=== PATIENT | female | born 1935 | race Caucasian/White ===

== ENCOUNTER 2019-10-02 15:25 | Outpatient (CLI) | payer MEDICARE, SELFPAY ==
--- NOTE | 2019-10-02 15:52 | XRR_ITS ---
PROCEDURE INFORMATION: Exam: XR Pelvis Exam date and time: 10/02/2019 4:09 PM Age: 84 years old Clinical indication: Pain; Other: Back; Additional info: Chronic back pain TECHNIQUE: Imaging protocol: XR pelvis. Views: 1 or 2 view. COMPARISON: CT Abdomen/Pelvis Renal [id number] 01/13/2014 4:45 PM FINDINGS: Bones/joints: Unremarkable. No acute fracture. Soft tissues: There is metallic surgical clips in the lower central pelvis. The soft tissues are otherwise Unremarkable. XR/XR pelvis 1-2V* [id number] IMPRESSION: No acute findings.
--- NOTE | 2019-10-02 15:52 | XRR_ITS ---
PROCEDURE INFORMATION: Exam: XR Lumbosacral Spine, 2 or 3 Views Exam date and time: 10/02/2019 4:09 PM Age: 84 years old Clinical indication: Low back pain; Additional info: Chronic back pain TECHNIQUE: Imaging protocol: XR of the lumbosacral spine, 2 or 3 views. COMPARISON: CR Lumbar Spine 2-3 views* [id number] 12/12/2014 12:04 PM FINDINGS: Vertebrae: There is a narrowing of the intervertebral disc spaces several levels consistent with mild osteoarthritis. No acute fracture. Normal alignment. Soft tissues: The aorta is calcified without aneurysm. there is evidence of metallic surgical clips right upper quadrant consistent with cholecystectomy. XR/XR lumbar spine 2-3V* [id number] IMPRESSION: Osteoarthritis Status post cholecystectomy Otherwise Unremarkable radiograph.
== END 2019-10-02 15:26 | disposition home or self-care (01) ==
LOC: RAD 15:31
PROVIDERS: Family Provider Family Medicine; PCP Family Medicine; Visit Provider Family Medicine
DX: M54.5 Low back pain (principal); M47.897 Other spondylosis, lumbosacral region; G89.29 Other chronic pain; Z90.49 Acquired absence of other specified parts of digestive tract
CPT/HCPCS: 72100; 72170

== ENCOUNTER 2019-11-29 11:27 | Outpatient (CLI) | payer MEDICARE, SELFPAY ==
[2019-11-29 12:07] LABS: Basophils # 0.1 10^3/uL (0.0-0.1); Basophils % 0.3 %; Eosinophils # 0.1 10^3/uL (0.0-0.8); Eosinophils % 0.4 %; Hematocrit 39.9 % (37.0-47.0); Lymphocytes # 26.3 10^3/uL (0.8-4.8); Lymphocytes % 73.6 %; Mean Corpuscular HGB Conc 30.1 g/dL (30.0-36.0); Mean Corpuscular Hemoglobin 30.6 pg (28.0-34.0); Mean Corpuscular Volume 101.8 fL (81-99); Mean Platelet Volume 10.3 fL (7.4-10.4); Monocytes # 1.3 10^3/uL (0.2-0.9); Monocytes % 3.6 %; Neutrophils # 7.8 10^3/uL (1.8-7.7); Neutrophils % 21.6 %; Nucleated Red Blood Cells % 0 %; Platelet Count 185 10^3/cmm (130-400); Red Blood Count 3.92 10^6/uL (4.1-5.3); Red Cell Distribution Width 13.9 % (12.1-15.1)
[2019-11-29 12:12] LABS: Alanine Aminotransferase 29 U/L (0-33); Albumin Level 3.4 g/dL (3.5-5.2); Alkaline Phosphatase 72 IU/L (35-105); Anion Gap 12.4 (5-19); Aspartate Amino Transferase 39 U/L (0-32); Blood Urea Nitrogen 18 mg/dL (8-23); Calcium 9.6 mg/dL (8.5-10.5); Carbon Dioxide 31 mmol/L (22-29); Chloride 99 mmol/L (98-107); Globulin 3.1 g/dL (1.3-4.6); Glucose 250 mg/dL (65-115); Lactate Dehydrogenase 164 U/L (135-214); Osmolality Calculated 291 mOsm/kg (285-295); Potassium 4.4 mmol/L (3.5-5.1); Sodium 138 mmol/L (136-145); Total Bilirubin 0.4 mg/dL (0.15-1.2); Total Protein 6.5 g/dL (6.6-8.7)
[2019-11-29 12:38] LABS: White Blood Count 35.7 10^3/uL (4.0-10.0)
[2019-11-29 12:39] LABS: Slide Review Slide Review Perform
[2019-11-29 14:34] LABS: Estmated Average Glucose 163; Hemoglobin A1C 7.3 % (4.0-6.0)
--- NOTE | 2019-12-02 11:33 | ONC FU_ITS ---
Dr. Gil Patient Follow-Up Note Patient: Rubina Kennedy Unit #: [id number]: [id number] Dicatated By: Leon Gil M.D.Date of Visit:Nov 29, 2019 Onc Med Follow-up/Prog Note Chief Complaint: Chronic lymphocytic leukemia. History of Present Illness: This is an 84 year-old woman with chronic lymphocytic leukemia. She had early stage disease at initial diagnosis in November of 2005. Thus far she has just been managed with observation. Her other medical illnesses include hypertension, hypercholesterolemia, and stage III chronic kidney disease. She also mild GERD, osteoporosis, and degenerative arthritis, and she has anxiety/depression. She underwent bilateral oophorectomy in August of 2011, apparently for an enlarged ovary. There was no evidence of malignancy. At the time of her visit her in June 2012, she was found to have atrial fibrillation. She has been under the care of Dr. Lux. She has been on anticoagulation with rivaroxaban. She had smoked in the past, but she quit more than 30 years ago. INTERIM HISTORY: I had seen her for a follow-up visit on 04/12/2019. At that point she had been losing weight, and she appeared to be showing some decline in performance status. There was no evidence, though, of progression of the CLL, and she continued observation/expectant management. She is seen for a scheduled visit. She says she has been feeling okay. Her energy is not all that good, but she is able to do light work. ECOG score is 1. Her appetite also is not good, but her weight is back up 7 pounds. She has not had fever. She tends to be hot at night, but she does not have any night sweating. She tends to have some sinus drainage when she first gets up in the morning. She has no shortness of breath, cough, or chest pain. She currently has no GI or complaints. Her back sometimes hurts. She has no other joint or bone pain. She does not complain of headache. She has no focal neurologic symptoms. Medications: ALPRAZolam 1 (0.25 mg) Tablet Oral b.i.d. PRN, Amoxicillin 1 Tablet (of 875 mg) Oral daily, Atorvastatin Calcium 1 (20 mg) Tablet Oral daily, Citalopram Hydrobromide 1 (40 mg) Tablet Oral daily, Digoxin 1 (250 mcg) Tablet Oral daily, Levothyroxine Sodium 1 (50 mcg) Tablet Oral daily, Metoprolol Tartrate 0.5 Tablet (of 50 mg) Oral b.i.d., Multivitamin Adult Tablet Oral daily, Omeprazole 1 (20 mg) Capsule Delayed Release Oral daily, Xarelto 1 (20 mg) Tablet Oral daily Allergies: No Known Allergies. Review of Systems: Constitutional - Her energy level is low. She does light house work but otherwise she is sedentary. She has poor appetite but she is able to eat. She has gained weight. No fever or chills. She feels hot at night, but she does not have night sweating. ECOG score is 1, ENMT - She has some sinus congestion/drainage. No mouth sores. No sore throat or difficulty swallowing, Hematologic/Lymphatic - No abnormal bruising or bleeding, Respiratory - No shortness of breath. No cough. No pleuritic pain or hemoptysis, Cardiovascular - No angina pain. No palpitations, Gastrointestinal - No nausea or vomiting. She has some heartburn that is well controlled with Prilosec. No diarrhea or constipation. No blood in the stool or black stools, Genitourinary (F) - No dysuria or hematuria. No urinary frequency. No urgency or incontinence, Musculoskeletal - She has some chronic back pain, Integumentary - No skin complications, Neurologic - No headache. She has dizziness upon standing. No numbness/paresthesias or other focal neurologic symptoms, Psychiatric - Her anxiety/depression is adequately managed with medication. No insomnia. Vital Signs: Performed on Nov 29, 2019 13:44 Height - 65.00 in Weight - 135.2 lbs (HIGH) BSA - 1.67 sq.m BMI - 22.50 Temperature - 97.0 F (LOW) Pulse - 89 /min Respiration - 18 /min BP - 119/64 mm(hg) O2 Sat - 98 % Pain - 0 Physical Examination: Constitutional - She looks pretty good generally, Eyes - Sclerae nonicteric. Conjunctivae clear, ENMT - No lesions noted in the oral cavity, Hematologic/Lymphatic - No cervical, clavicular, or axillary adenopathy, Respiratory - Lungs are clear with good air movement bilaterally, Cardiovascular - Heart rhythm is irregular. The rate is controlled. There is no murmur, gallop, or rub noted, Abdomen - Soft. Liver and spleen are not enlarged. There is no abdominal mass or ascites noted and there is no inguinal adenopathy, Extremities - No edema, Neurologic - There are no focal neurologic deficits noted. Lab/Imaging: Test performed on Nov 29, 2019 11:35 LDH (Total) 164 U/L Sodium 138 mmol/L Potassium 4.4 mmol/L Chloride 99 mmol/L CO2 31 mmol/L Anion Gap 12.4 BUN 18 mg/dL Creatinine 1.3 mg/dL Cr Clearance (Est) 32.30 mL/min Glucose 250 mg/dL Calcium 9.6 mg/dL Protein, Total 6.5 g/dL Albumin 3.4 g/dL Globulin 3.1 g/dL Bilirubin, Total 0.4 mg/dL ALT (SGPT) 29 U/L AST (SGOT) 39 U/L Alkaline Phosphatase 72 IU/L Hemoglobin A1C % 7.3 % WBC 35.7 10 3/uL RBC 3.92 10 6/uL HGB 12.0 g/dL HCT 39.9 % MCV 101.8 fL MCH 30.6 pg MCHC 30.1 g/dL RDW 13.9 % Platelet Count 185 10 3/cmm MPV 10.3 fL Neutrophils 7.8 10 3/uL Lymphocytes 26.3 10 3/uL Monocytes 1.3 10 3/uL Eosinophils 0.1 10 3/uL Basophils 0.1 10 3/uL Neutrophil % 21.6 % Lymphocyte % 73.6 % Monocyte % 3.6 % Eosinophil % 0.4 % Basophils % 0.3 % CBC Slide Review Slide Review Perform Impression: 1. Patient with chronic lymphocytic leukemia, Hare stage I, initially diagnosed in November 2005. She has been managed expectantly. During followup there has been some increase in her lymphocyte count, but there has been no indication for treatment of the leukemia. Her other medical illnesses include: 2. Hypertension. 3. Hypercholesterolemia. 4. Stage III chronic kidney disease. 5. Chronic atrial fibrillation, on anticoagulation with rivaroxaban. 6. GERD. 7. Degenerative arthritis. 8. Osteoporosis. 9. Anxiety/depression. On her follow-up visit in January 2016 she was mildly anemic, but that resolved on oral iron supplementation. Her blood counts have otherwise been stable during a long period of follow-up, at least since 2010. As of her follow-up visit in March 2019 she had been losing weight and she also was having some decline in performance status, but there was no evidence to suggest that her CLL was progressing or symptomatic. She continued observation/expectant management. She has since then regained some weight. She still has limited activity tolerance. Her blood counts remained stable. She does have elevated blood sugar and elevated hemoglobin A1c level, so that she does appear to have type 2 diabetes. Plan: She remains on observation for the chronic lymphocytic leukemia. She will be scheduled for a follow-up visit in 6 months. In the meantime, the laboratory results will be forwarded to Dr. Evangelista for management of the diabetes. Signed By: Leon Gil M.D. <<Signature on File>>
== END 2019-11-29 11:28 | disposition home or self-care (01) ==
LOC: ONCMED 11:27
PROVIDERS: Family Provider Family Medicine; PCP Family Medicine; Visit Provider Internal Medicine Medical Oncology
DX: C91.10 Chronic lymphocytic leukemia of B-cell type not having achieved remission (principal); E78.00 Pure hypercholesterolemia, unspecified; I12.9 Hypertensive chronic kidney disease with stage 1 through stage 4 chronic kidney disease, or unspecified chronic kidney disease; N18.3 Chronic kidney disease, stage 3 (moderate); K21.9 Gastro-esophageal reflux disease without esophagitis; M81.0 Age-related osteoporosis without current pathological fracture; M19.90 Unspecified osteoarthritis, unspecified site; F41.8 Other specified anxiety disorders; E11.9 Type 2 diabetes mellitus without complications; I48.20 Chronic atrial fibrillation, unspecified; Z79.01 Long term (current) use of anticoagulants; Z90.722 Acquired absence of ovaries, bilateral; Z87.891 Personal history of nicotine dependence
CPT/HCPCS: 36415; 80053; 83036; 83615; 85025; G0463

== ENCOUNTER 2020-02-14 11:23 | Emergency (ER) | payer MEDICARE, SELFPAY ==
[2020-02-14 11:24] VITALS: BP 118/62; PULSE 110; RESP 24; TEMP 36.9; O2SAT 92; BMI 22.1
--- NOTE | 2020-02-14 11:45 | XR_ITS ---
WS: [id number] XR ribs RT mn 3V w CXR1V [id number] REASON FOR EXAM: fall FINDINGS: Displaced fractures on the right in the sixth, seventh, eighth There is appears to be a small area of pneumothorax in the right lung base.. . No fluid is seen in the right lung. The heart is normal The left lung is normal. XR/XR ribs RT mn 3V w CXR1V [id number] IMPRESSION: Displaced fractures involving the sixth, seventh, eighth rib on the right. Questionable small area of pneumothorax right lung base.
--- NOTE | 2020-02-14 11:45 | CT_ITS ---
WS: [id number] CT head wo con* [id number] REASON FOR EXAM: loss of consciousness, fall, on anticoagulation IV CONTRAST ADMINISTERED: None. TOTAL EXAM DLP: 852.[address] scans at [facility] use at least one of these dose optimization techniques: automat ed exposure control; mA and/or kV adjustment per patient size (includes targeted exams where dose is matched to clinical indication); or iterative reconstruction. FINDINGS: Ventricular megaly with scattered abnormalities of the sulci from atrophy. Hypodensities in the paraventricular area consistent with small vessel ischemic changes. The brain show no evidence of intracranial hemorrhage, macro infarction, or mass effect. The sylvian fissures are dilated. The atmmie posterior's fossa were normal. The calvarium was intact.. The paranasal sinuses are all normal. There is no fractures of the calvarium seen. CT/CT head wo con* [id number] IMPRESSION: Moderate hydrocephalus with evidence of small vessel ischemic changes There is no evidence of hemorrhage.
--- NOTE | 2020-02-14 11:49 | ECG_ITS ---
Measurements Intervals [place] Rate: 108 P: [place]: 0 QRS: -42 QRSD: 76 T: 31 QT: 328 QTc: 440 ATRIAL FIBRILLATION WITH RAPID VENTRICULAR RESPONSE LEFT AXIS DEVIATION [QRS AXIS < -30] LOW QRS VOLTAGE IN PRECORDIAL LEADS [QRS DEFLECTION < 1.0 mV IN CHEST LEADS] POSSIBLE RIGHT VENTRICULAR CONDUCTION DELAY [RSR (QR) IN V1/V2] POSSIBLE ANTERIOR MYOCARDIAL INFARCTION , PROBABLY OLD [30 ms Q WAVE IN V3/V4, OR R < 0.2 mV IN V4] Compared to ECG 10/14/2016 17:02:21 Ventricular premature complex(es) no longer present Aberrant conduction of supraventricular beat(s) no longer present Myocardial infarct finding still present Electronically Signed On 02-14-2020 20:56:59 CDT by Luli Marino M.D. [id number]
[2020-02-14 12:01] VITALS: PULSE 116; RESP 18; O2SAT 92
[2020-02-14 12:10] LABS: Basophils # 0.1 10^3/uL (0.0-0.1); Basophils % 0.1 %; Hematocrit 42.8 % (37.0-47.0); Lymphocytes # 37.4 10^3/uL (0.8-4.8); Lymphocytes % 68.3 %; Mean Corpuscular HGB Conc 30.4 g/dL (30.0-36.0); Mean Corpuscular Hemoglobin 30.4 pg (28.0-34.0); Mean Corpuscular Volume 100.2 fL (81-99); Mean Platelet Volume 10.3 fL (7.4-10.4); Monocytes # 2.2 10^3/uL (0.2-0.9); Monocytes % 4.1 %; Neutrophils # 14.7 10^3/uL (1.8-7.7); Neutrophils % 26.8 %; Nucleated Red Blood Cells % 0 %; Platelet Count 181 10^3/cmm (130-400); Red Blood Count 4.27 10^6/uL (4.1-5.3)
--- NOTE | 2020-02-14 12:16 | ED_ITS ---
HPI - Fall General: Chief Complaint: Fall Stated Complaint: DIZZY FALL Time Seen by Provider: 02/14/20 11:28 Source: patient Mode of arrival: EMS History of Present Illness: HPI Narrative: This is an 84-year-old female patient with a history of CLL that has been managed expectantly who presents to the emergency department following episodes of loss of consciousness and falls. She said yesterday while standing next to her she suddenly lost consciousness. It is unknown how long she was out for and she does not know if she hit her head. Today while in the bathroom she also lost consciousness. She takes Xarelto anticoagulation for atrial fibrillation. Right now she only hurts in her right rib area. She denies any headache, neck pain, arm or extremity pain. She has been able to ambulate after the falls. MD complaint: fall Onset (ago): hour(s) (1) Fall from: other (while using the bathroom.) Fall witnessed: no Place fall occurred: home Loss of consciousness: Yes Length of LOC: second(s) Prolonged down time: no Symptoms prior to fall: none Associated symptoms-after fall: Reports chest pain; Denies abdominal pain, headache(s) or neck pain Review of Systems General: Reports: 10 or more systems reviewed and unremarkable except in HPI and below Const: Denies: fever(s), chills or body aches Eyes: Denies: change in vision or blurry vision ENMT: Denies: throat pain, enlarged tonsils, odynophagia, hoarseness, mouth pain or swelling of lips/tongue Card: Reports: chest pain; Denies: palpitations, irregular heart rhythm, edema or swelling of feet/ankles Resp: Denies: dyspnea, productive cough or non-productive cough GI: Denies: abdominal pain, nausea or vomiting : Denies: flank pain, difficulty voiding, dysuria, urinary frequency, urinary urgency or urinary hesitancy Musc: Denies: neck pain, back pain or extremity swelling Skin/Breast: Denies: rash, pruritus or erythema Neuro: Denies: headache(s), numbness in extremities or weakness in extremities Endo: Denies: polyuria, polydipsia or tired all the time PFSH ED PFSH: Social History Smoking and tobacco status: former smoker Physical Exam Const: COMMON NORMALS: no acute distress, average body habitus, patient oriented x3, no limitations, healthy appearing, alert and well nourished NUTRITIONAL APPEARANCE: thin HENMT: COMMON NORMALS: normocephalic, atraumatic and moist oral mucous membranes HEAD & SCALP: normocephalic and atraumatic Eye: COMMON NORMALS: Equal, round and reactive pupils present, EOMs intact bilaterally, conjunctivae normal and no scleral icterus CONJUNCTIVA: Yes conjunctivae normal PUPIL: Yes Equal, round and reactive pupils present Neck/C-Spine: COMMON NORMALS: full ROM, supple, no meningeal signs, no JVD and No carotid bruits Chest: COMMONS NORMALS: normal inspection of the chest and normal palpation of entire chest wall Resp: COMMON NORMALS: normal respiratory effort, No retractions, No use of accessory muscles, clear to auscultation bilaterally and percussion normal AUSCULTATION: clear to auscultation bilaterally PERCUSSION: percussion normal Cardio: COMMON NORMALS: no JVD, regular rate, regular rhythm, S1 normal heart sound present, S2 normal heart sound present, No gallops present (Cardio), No clicks present (Cardio), No murmurs present (Cardio), No rub (Cardio) and Peripheral pulses 2+ throughout RATE: regular rate RHYTHM: regular rhythm HEART SOUNDS: S1 normal heart sound present and S2 normal heart sound present PERIPHERAL PULSES: Peripheral pulses 2+ throughout GI: COMMON NORMALS: Normal to inspection, nondistended, normoactive bowel sounds present, Soft to palpation, non-tender, No hepatosplenomegaly present, no masses and no bruits PALPATION: Yes Soft to palpation and Yes No hepatosplenomegaly present : COMMON NORMALS: Yes no CVA tenderness BLADDER/KIDNEY EXAM: Yes no CVA tenderness Back/Pelvis: COMMON NORMALS: no CVA tenderness Extremity: COMMON NORMALS: normal to inspection, full ROM, capillary refill normal, no calf tenderness and no pedal edema Neuro: COMMON NORMALS: patient oriented x3 SENSORIUM/ORIENTATION: Yes alert MENINGEAL SIGNS: Yes no meningeal signs Skin: COMMON NORMALS: no rashes or lesions noted, no wounds, turgor normal, no jaundice, no petechiae and no mottling GENERAL SKIN EXAM: no rashes or lesions noted and turgor normal Course Reevaluation(s): Reevaluation #1: Discussed her lab and imaging findings with her. She has multiple rib fractures on the right with pneumothorax. She will need to be evaluated in a trauma center especially as she is hypoxic. The patient opted to be transferred to [facility]. Time: 14:00 Consultations: Consultation #1: Discussed with Dr. Steele, ED physician at [facility]. She kindly accepted the patient to her service but she would like me to discuss with the trauma surgeon to see if she would require a chest tube Time: 14:10 Consultation #2: Dr. Hanley, trauma surgeon at [facility]. No need for a chest tube placement. Time: 14:18 Vital Signs: Vital signs: Vital Signs Temperature 98.4 F 02/14/20 11:24 Pulse Rate 100 02/14/20 14:54 Respiratory Rate 23 H 02/14/20 14:28 Blood Pressure 132/77 02/14/20 14:54 Pulse Oximetry 95 02/14/20 14:28 MDM - Fall MDM Narrative: Medical decision making narrative: 84-year-old female patient who had repeated episodes of syncope between yesterday and today. Evaluation here shows that she has significant orthostatic vital signs, sustained multiple rib fractures with a small pneumothorax. She was mildly hypoxic here in the emergency department. She is therefore tra nsferred to [facility] for trauma evaluation. Lab Data: Labs: Lab Results 02/14/20 02/14/20 02/14/20 Range/Units 12:00 12:00 12:00 WBC 54.7 H* (4.0-10.0) 10^3/ uL RBC 4.27 (4.1-5.3) 10^6/u L Hgb 13.0 (11.5-15.3) g/dL Hct 42.8 (37.0-47.0) % MCV 100.2 H (81-99) fL MCH 30.4 (28.0-34.0) pg MCHC 30.4 (30.0-36.0) g/dL RDW 14.0 (12.1-15.1) % Plt Count 181 (130-400) 10^3/c mm MPV 10.3 (7.4-10.4) fL Neut % (Auto) 26.8 % Lymph % (Auto) 68.3 % [place] % (Auto) 4.1 % Eos % (Auto) 0.0 % Baso % (Auto) 0.1 % Neut # (Auto) 14.7 H (1.8-7.7) 10^3/u L Lymph # (Auto) 37.4 H (0.8-4.8) 10^3/u L [place] # (Auto) 2.2 H (0.2-0.9) 10^3/u L Eos # (Auto) 0.0 (0.0-0.8) 10^3/u L Baso # (Auto) 0.1 (0.0-0.1) 10^3/u L Nucleated RBC % (a uto) 0 % Nucleated RBCs # 0.0 /100WBC Sodium 135 L (136-145) mmol/L Potassium 4.9 (3.5-5.1) mmol/L Chloride 94 L (98-107) mmol/L Carbon Dioxide 28 (22-29) mmol/L Anion Gap 17.9 (5-19) BUN 19 (8-23) mg/dL Creatinine 1.2 H (0.5-0.9) mg/dL Glucose 246 H (65-115) mg/dL Calculated Osmolal ity 285 (285-295) mOsm/k g Calcium 9.8 (8.5-10.5) mg/dL Total Bilirubin 0.7 (0.15-1.2) mg/dL AST 52 H (0-32) U/L ALT 42 H (0-33) U/L Alkaline Phosphata se 79 (35-105) IU/L Troponin T Baselin e 19 H (0-10) ng/mL Troponin T 120 Min [place] (0-10) ng/mL Delta Troponin T (0-10) ABS# Total Protein 6.7 (6.6-8.7) g/dL Albumin 3.8 (3.5-5.2) g/dL Globulin 2.9 (1.3-4.6) g/dL TSH 1.65 (0.27-4.20) uIU/ mL Urine Color (Yellow) Urine Appearance (CLEAR) Urine pH (5-7) Ur Specific Gravit y (1.005-1.030) Urine Protein (Negative) Urine Glucose (UA) (Normal) Urine Ketones (Negative) Urine Blood (Negative) Urine Nitrate (Negative) Urine Bilirubin (NEGATIVE) Urine Urobilinogen (Negative) mg/dL Ur Leukocyte [place] (Negative) Urine RBC (0-2) /hpf Urine WBC (0-5) /hpf Ur Squamous Epith Cells (0-5) Urine Bacteria (NONE) 02/14/20 02/14/20 Range/Units 12:06 14:02 WBC (4.0-10.0) 10^3/ uL RBC (4.1-5.3) 10^6/u L Hgb (11.5-15.3) g/dL Hct (37.0-47.0) % MCV (81-99) fL MCH (28.0-34.0) pg MCHC (30.0-36.0) g/dL RDW (12.1-15.1) % Plt Count (130-400) 10^3/c mm MPV (7.4-10.4) fL Neut % (Auto) % Lymph % (Auto) % [place] % (Auto) % Eos % (Auto) % Baso % (Auto) % Neut # (Auto) (1.8-7.7) 10^3/u L Lymph # (Auto) (0.8-4.8) 10^3/u L [place] # (Auto) (0.2-0.9) 10^3/u L Eos # (Auto) (0.0-0.8) 10^3/u L Baso # (Auto) (0.0-0.1) 10^3/u L Nucleated RBC % (a uto) % Nucleated RBCs # /100WBC Sodium (136-145) mmol/L Potassium (3.5-5.1) mmol/L Chloride (98-107) mmol/L Carbon Dioxide (22-29) mmol/L Anion Gap (5-19) BUN (8-23) mg/dL Creatinine (0.5-0.9) mg/dL Glucose (65-115) mg/dL Calculated Osmolal ity (285-295) mOsm/k g Calcium (8.5-10.5) mg/dL Total Bilirubin (0.15-1.2) mg/dL AST (0-32) U/L ALT (0-33) U/L Alkaline Phosphata se (35-105) IU/L Troponin T Baselin e (0-10) ng/mL Troponin T 120 Min [place] 16.13 H (0-10) ng/mL Delta Troponin T -2.87 L (0-10) ABS# Total Protein (6.6-8.7) g/dL Albumin (3.5-5.2) g/dL Globulin (1.3-4.6) g/dL TSH (0.27-4.20) uIU/ mL Urine Color Yellow (Yellow) Urine Appearance Clear (CLEAR) Urine pH 5 (5-7) Ur Specific Gravit y 1.015 (1.005-1.030) Urine Protein Neg (Negative) Urine Glucose (UA) Norm (Normal) Urine Ketones Negative (Negative) Urine Blood 3+ H (Negative) Urine Nitrate Negative (Negative) Urine Bilirubin Neg (NEGATIVE) Urine Urobilinogen Norm (Negative) mg/dL Ur Leukocyte [place] Negative (Negative) Urine RBC 0-4 H (0-2) /hpf Urine WBC 15-25 H (0-5) /hpf Ur Squamous Epith Cells 0-4 H (0-5) Urine Bacteria 4+ H (NONE) EKG Data^: EKG 1: Attestation: I personally reviewed and interpreted this EKG as follows: EKG interpretation date: 02/14/20 EKG interpretation time: 11:40 Prior EKG tracings: not available for review Interpretation: Atrial fibrillation with rapid ventricular response. Heart rate 108 bpm. Left axis deviation. EKG 2: Attestation: I personally reviewed and interpreted this EKG as follows: EKG interpretation date: 02/14/20 EKG interpretation time: 13:24 Interpretation: Unchanged from earlier today Discharge Plan Discharge Patient Disposition: Xfer Short-Term Hosp Clinical Impression: Orthostatic syncope, Closed rib fracture, Traumatic fracture of ribs of right side with pneumothorax, Hypoxia Condition: Stable Discharge Orders: Transfer Out of Facility (Order); Ordered 02/14/20 Ordered By: Cinthia Hines Referrals: Doyle Evangelista MD [Primary Care Provider] - Coding Level of Care Code ED [employer] Folder Operator for Chg Fwd Exam Comprehensive
[2020-02-14 12:28] LABS: Urine Appearance Clear (CLEAR); Urine Color Yellow (Yellow)
[2020-02-14 12:29] LABS: Add Urine Culture? Yes; Add Urine Microscopic? YES; Bacteria Urine 4+; Bilirubin Urine Neg (NEGATIVE); Blood Urine 3+ (Negative); Glucose Urine UA Norm (Normal); Ketones Urine Negative (Negative); Leukocyte Esterase Urine Negative (Negative); Nitrate Urine Negative (Negative); Protein Urine Neg (Negative); RBC Urine 0-4 /hpf (0-2); Specific Gravity, Urine 1.015 (1.005-1.030); Squamous Epithelial Cell Urine 0-4 (0-5); Urobilinogen Urine Norm (Negative); WBC Urine 15-25 /hpf (0-5); pH Urine 5 (5-7)
[2020-02-14 12:41] LABS: Alanine Aminotransferase 42 U/L (0-33); Albumin Level 3.8 g/dL (3.5-5.2); Alkaline Phosphatase 79 IU/L (35-105); Anion Gap 17.9 (5-19); Aspartate Amino Transferase 52 U/L (0-32); Blood Urea Nitrogen 19 mg/dL (8-23); Calcium 9.8 mg/dL (8.5-10.5); Carbon Dioxide 28 mmol/L (22-29); Chloride 94 mmol/L (98-107); Creatinine Clr Calc Pharmacy 30.8807; Globulin 2.9 g/dL (1.3-4.6); Glucose 246 mg/dL (65-115); Osmolality Calculated 285 mOsm/kg (285-295); Potassium 4.9 mmol/L (3.5-5.1); Sodium 135 mmol/L (136-145); Thyroid Stimulating Hormone 1.65 uIU/mL (0.27-4.20); Total Bilirubin 0.7 mg/dL (0.15-1.2); Total Protein 6.7 g/dL (6.6-8.7)
[2020-02-14 12:49] LABS: Slide Review Slide Review Perform; White Blood Count 54.7 10^3/uL (4.0-10.0)
[2020-02-14 12:53] LABS: Troponin(5th) Baseline 19 ng/mL (0-10)
--- NOTE | 2020-02-14 13:16 | CT_ITS ---
WS: [id number] CT chest wo con [id number] REASON FOR EXAM: rib fracture ? pneumothorax IV CONTRAST ADMINISTEREDNone. TOTAL EXAM DLP: 613.[address] scans at [facility] use at least one of these dose optimization techniques: automat ed exposure control; mA and/or kV adjustment per patient size (includes targeted exams where dose is matched to clinical indication); or iterative reconstruction. FINDINGS: Fractures of the sixth, seventh, eighth rib are seen. On plain film there was noted a very small pneumothorax under the ribs this is seen on the CT but no definite lung involvement remaining is seen. There is now evidence of right pleural effusion not obse rved on previous exam There is small areas of atelectasis in the right lung base not observed on the rib study. The liver appear to be normal not lacerated The adrenal glands were normal. There is degenerate changes noted in the upper thoracic or cervical spine. The aorta was normal in the mediastinum show no abnormalities. CT/CT chest wo con [id number] IMPRESSION: Fractures of the sixth, seventh, eighth ribs on the right A very small area of air suggesting a small pneumothorax under riding the seven th rib. Atelectasis in the right lower lung and minimal Right pleural effusion minimal
--- NOTE | 2020-02-14 13:20 | PC.NURSE ---
EKG done at 1318 and shown to ER doctor
--- NOTE | 2020-02-14 13:22 | PC.NURSE ---
Patient placed on o2 therapy at this time.
[2020-02-14 13:47] VITALS: RESP 25; O2SAT 95
[2020-02-14] MEDS: morphine 4 mg/mL SDV 1 mL 2 MG IVP (13:47)
[2020-02-14 14:22] LABS: Troponin 5 2HR 16.13 ng/mL (0-10)
[2020-02-14 14:28] VITALS: BP 144/96; PULSE 85; RESP 23; O2SAT 95
[2020-02-14 14:31] LABS: Troponin 5 2HR Delta -2.87 ABS# (0-10)
[2020-02-14 14:54] VITALS: BP 130/99; BP 132/77; BP 66/39; PULSE 100; PULSE 134; PULSE 99
[2020-02-14] MEDS: ketorolac 30 mg/mL INJ 15 MG IVP (15:04)
[2020-02-14 16:19] VITALS: BP 142/64; PULSE 68; RESP 18; O2SAT 94
--- NOTE | 2020-02-14 17:49 | ECG_ITS ---
Measurements Intervals [place] Rate: 107 P: [place]: 0 QRS: -37 QRSD: 76 T: 22 QT: 326 QTc: 436 ATRIAL FIBRILLATION WITH RAPID VENTRICULAR RESPONSE LEFT AXIS DEVIATION [QRS AXIS < -30] LOW QRS VOLTAGE IN PRECORDIAL LEADS [QRS DEFLECTION < 1.0 mV IN CHEST LEADS] POSSIBLE RIGHT VENTRICULAR CONDUCTION DELAY [RSR (QR) IN V1/V2] ANTEROSEPTAL MYOCARDIAL INFARCTION , OF INDETERMINATE AGE [40+ ms Q WAVE IN V1-V4] Compared to ECG 10/14/2016 17:02:21 Ventricular premature complex(es) no longer present Aberrant conduction of supraventricular beat(s) no longer present Myocardial infarct finding still present Electronically Signed On 02-14-2020 21:02:18 CDT by Luli Marino M.D. [email or web address]
== END 2020-02-14 16:41 | disposition short-term general hospital (02) ==
PROVIDERS: Emergency Provider Family Medicine; Family Provider Family Medicine; PCP Family Medicine
DX: R55 Syncope and collapse (principal); S22.41XA Multiple fractures of ribs, right side, initial encounter for closed fracture; S27.0XXA Traumatic pneumothorax, initial encounter; R09.02 Hypoxemia; W19.XXXA Unspecified fall, initial encounter; Z87.891 Personal history of nicotine dependence
CPT/HCPCS: 12345; 36415; 70450; 71101; 71250; 80053; 81001; 84443; 84484; 85025; 87077; 87086; 93005; 96374; 96375; 99283; 99285; J1885; J2270

== ENCOUNTER 2020-06-14 10:25 | Outpatient (CLI) | payer MEDICARE, SELFPAY ==
[2020-06-14 11:55] LABS: Basophils # 0.1 10^3/uL (0.0-0.1); Basophils % 0.3 %; Eosinophils # 0.1 10^3/uL (0.0-0.8); Eosinophils % 0.4 %; Hematocrit 41.7 % (37.0-47.0); Hemoglobin 13.2 g/dL (11.5-15.3); Lymphocytes # 24.1 10^3/uL (0.8-4.8); Lymphocytes % 78.1 %; Mean Corpuscular HGB Conc 31.7 g/dL (30.0-36.0); Mean Corpuscular Hemoglobin 31.2 pg (28.0-34.0); Mean Corpuscular Volume 98.6 fL (81-99); Mean Platelet Volume 10.3 fL (7.4-10.4); Monocytes % 3.3 %; Neutrophils # 5.38 10^3/uL (1.8-7.7); Neutrophils % 17.4 %; Nucleated Red Blood Cells % 0 %; Platelet Count 240 10^3/cmm (130-400); Red Blood Count 4.23 10^6/uL (4.1-5.3)
[2020-06-14 12:11] LABS: Alanine Aminotransferase 17 U/L (0-33); Albumin Level 4.3 g/dL (3.5-5.2); Alkaline Phosphatase 77 IU/L (35-105); Anion Gap 15.2 (5-19); Aspartate Amino Transferase 27 U/L (0-32); Blood Urea Nitrogen 19 mg/dL (8-23); Calcium 10.5 mg/dL (8.5-10.5); Carbon Dioxide 28 mmol/L (22-29); Chloride 99 mmol/L (98-107); Globulin 2.3 g/dL (1.3-4.6); Glucose 188 mg/dL (65-115); Lactate Dehydrogenase 166 U/L (135-214); Osmolality Calculated 293 mOsm/kg (285-295); Potassium 4.2 mmol/L (3.5-5.1); Sodium 138 mmol/L (136-145); Total Bilirubin 0.6 mg/dL (0.15-1.2); Total Protein 6.6 g/dL (6.6-8.7)
[2020-06-14 12:42] LABS: Slide Review Slide Review Perform
[2020-06-14 13:03] LABS: White Blood Count 30.9 10^3/uL (4.0-10.0)
== END 2020-06-14 10:26 | disposition home or self-care (01) ==
LOC: ONCMED 12:02
PROVIDERS: PCP Family Medicine; Visit Provider Internal Medicine Medical Oncology
DX: C91.10 Chronic lymphocytic leukemia of B-cell type not having achieved remission (principal)
CPT/HCPCS: 36415; 80053; 83615; 85025

== ENCOUNTER 2020-06-17 06:03 | Outpatient (CLI) | payer MEDICARE, SELFPAY | END 2020-06-17 06:04 | disposition home or self-care (01) | LOC: ONCMED 06:05 | PROVIDERS: PCP Family Medicine; Visit Provider Internal Medicine Medical Oncology | DX: Z53.9 Procedure and treatment not carried out, unspecified reason (principal) ==

== ENCOUNTER 2021-01-06 13:25 | Outpatient (CLI) | payer MEDICARE, SELFPAY ==
--- NOTE | 2021-01-06 13:33 | US_ITS ---
WS: [id number] ULTRASOUND SOFT TISSUES RIGHT scapula HISTORY: SUBCUTANEOUS MASS OF BACK COMPARISON: 02/14/2020 CT. TECHNIQUE: 2-D and color Doppler imaging is submitted. Prominent soft tissue along the RIGHT scapula measures 5.0 x 2.2 cm. There is increased blood flow to the soft tissue mass which is predominantly hypoechoic. This is asymmetric to the LEFT scapula. US/US soft tissue/extremity [id number] IMPRESSION: Soft tissue mass centered over the RIGHT scapula. Recommend follow-up chest CT with IV contrast for further evaluation. Neoplasm needs to be excluded.
== END 2021-01-06 13:26 | disposition home or self-care (01) ==
LOC: RAD 13:28
PROVIDERS: PCP Family Medicine; Visit Provider Family Medicine
DX: R22.2 Localized swelling, mass and lump, trunk (principal)
CPT/HCPCS: 76882

== ENCOUNTER 2021-01-17 14:35 | Outpatient (CLI) | payer MEDICARE, SELFPAY ==
--- NOTE | 2021-01-17 14:48 | CT_ITS ---
WS: [id number] CT scan of the chest with IV contrast, additional two-dimensional coronal and sagittal reconstruction was performed. 01/17/2021 Clinical Data: SUBCUTANEOUS MASS OF BACK Comparison: CT chest, 02/14/2020. DLP: 640.[address] scans at [facility] use at least one of these dose optimization techniques: automat ed exposure control; mA and/or kV adjustment per patient size (includes targeted exams where dose is matched to clinical indication); or iterative reconstruction. Findings: There are small stable lesions of both lungs. There is a stellate lesion which is probably a scar in the right upper lobe noted on axial image 15 of 60. There is a consistent bleb in the left upper lobe seen best on scan image 15 of 60. There is a soft tissue nodule in the left upper lobe at 11 of 60 w hich has not changed. There is a pleural-based density also unchanged seen best on image 30 of 60 in the posterior aspect of the left lower lobe. There is deformity of the right chest wall due to old ri ght sixth, seventh and eighth rib fractures. The heart size is normal with no pericardial effusion. N o pneumonia or pneumothorax is seen. The pulmonary vascularity is not increased. There is coronary ar bhupinder calcification. The pulmonary arterial system and thoracic aorta demonstrate no dilatations. Ther e is calcification of the wall of the descending thoracic aorta. The trachea bifurcates normally into the bronchi. There is a small hiatal hernia. There is no axillary or significant mediastinal adenopa thy. 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 The upper abdomen shows clips in the gallbladder fossa from a cholecystectomy. In the subcutaneous ti ssue of the back at the T12 level overlying the spinous process there is a small BB. However no subcu taneous masses or abnormalities can be seen. CT/CT chest w con* [id number] Impression: 1. Multiple stable nodules in both lungs. 2. Right chest wall deformity unchanged. 3. No evidence of abnormal posterior subcutaneous mass.
[2021-01-17 15:10] LABS: Blood Urea Nitrogen 19 mg/dL (8-23)
[2021-01-17] MEDS: iodixanol 320 mg/mL 100mL Btl IV (15:20)
== END 2021-01-17 14:36 | disposition home or self-care (01) ==
PROVIDERS: PCP Family Medicine; Visit Provider Family Medicine
DX: R22.2 Localized swelling, mass and lump, trunk (principal)
CPT/HCPCS: 71260; 82565; 84520; Q9967

== ENCOUNTER 2021-04-02 11:54 | Outpatient (CLI) | payer MEDICARE, SELFPAY ==
--- NOTE | 2021-04-02 10:26 | US_ITS ---
WS: [id number] INDICATION: Localized swelling mass subscapular lesion TECHNIQUE: The procedure including risks, benefits, locations were discussed the patient who agreed t o proceed. Using sterile technique patient was prepped and draped in usual sterile fashion. After 1% lidocaine, using ultrasound guidance, a tiny amount of bloody fluid was aspirated with a 18-gauge spi nal needle. Fluid was collected in test tube and sent for cytology. Subsequently 5 18-gauge cores wer e obtained of the subscapular lesion. No immediate applications. Pathology is pending. US/US biopsy bone [facility][note 2[place] IMPRESSION: Uncomplicated ultrasound-guided subscapular biopsy with core sample s and a tiny amount of fluid aspirated.
--- NOTE | 2021-04-02 12:09 | US_ITS ---
WS: [id number] INDICATION: Localized swelling mass subscapular lesion TECHNIQUE: The procedure including risks, benefits, locations were discussed the patient who agreed t o proceed. Using sterile technique patient was prepped and draped in usual sterile fashion. After 1% lidocaine, using ultrasound guidance, a tiny amount of bloody fluid was aspirated with a 18-gauge spi nal needle. Fluid was collected in test tube and sent for cytology. Subsequently 5 18-gauge cores wer e obtained of the subscapular lesion. No immediate applications. Pathology is pending.
== END 2021-04-02 11:55 | disposition home or self-care (01) ==
LOC: RAD 12:04
PROVIDERS: PCP Family Medicine; Visit Provider Surgery
DX: D36.7 Benign neoplasm of other specified sites (principal)
CPT/HCPCS: 20220; 76942; 88112; 88305; 88307; 88311

== ENCOUNTER → 2022-04-28 13:44 | Outpatient (BNVA) | payer MEDICARE, SELFPAY | PROVIDERS: PCP Family Medicine; Visit Provider Family Medicine | DX: E11.9 Type 2 diabetes mellitus without complications (principal); E03.9 Hypothyroidism, unspecified; I10 Essential (primary) hypertension; C91.10 Chronic lymphocytic leukemia of B-cell type not having achieved remission; I48.91 Unspecified atrial fibrillation | CPT/HCPCS: 80053; 83036; 84443; 85025 ==

== ENCOUNTER 2022-06-03 15:41 | Emergency (ER) | payer MEDICARE, SELFPAY ==
[2022-06-03 16:47] VITALS: BP 110/58; PULSE 93; RESP 14; TEMP 36.6; O2SAT 94; BMI 20.6
--- NOTE | 2022-06-03 18:17 | XRR_ITS ---
PROCEDURE INFORMATION: Exam: XR Chest Exam date and time: 06/03/2022 8:26 PM Age: 87 years old Clinical indication: Cough; Additional info: Coughing TECHNIQUE: Imaging protocol: Radiologic exam of the chest. Views: 1 view. COMPARISON: CT chest w con* [id number] 01/17/2021 3:13 PM FINDINGS: Lungs: Unremarkable. No consolidation. Pleural spaces: Unremarkable. No pleural effusion. No pneumothorax. Heart/Mediastinum: Unremarkable. No cardiomegaly. Bones/joints: Unremarkable. XR/XR chest 1V portable [id number] IMPRESSION: No acute findings.
[2022-06-03 18:25] LABS: Hematocrit 41.8 % (37.0-47.0); Hemoglobin 13.1 g/dL (11.5-15.3); Mean Corpuscular HGB Conc 31.3 g/dL (30.0-36.0); Mean Corpuscular Hemoglobin 30.2 pg (28.0-34.0); Mean Corpuscular Volume 96.3 fl (81-99); Mean Platelet Volume 9.9 fL (7.4-10.4); Platelet Count 222 10^3/cmm (130-400); Red Blood Count 4.34 10^6/uL (4.1-5.3); Red Cell Distribution Width 14.7 % (12.1-15.1); White Blood Count 25.5 10^3/uL (4.0-10.0)
[2022-06-03 18:30] LABS: Alanine Aminotransferase 21 U/L (0-33); Alkaline Phosphatase 79 U/L (35-105); Anion Gap 16.1 (5-19); Aspartate Amino Transferase 30 U/L (0-32); Blood Urea Nitrogen 31 mg/dL (8-23); Calcium 9.7 mg/dL (8.5-10.5); Carbon Dioxide 27 mmol/L (22-29); Chloride 96 mmol/L (98-107); Globulin 3.1 g/dL (1.3-4.6); Glucose 107 mg/dL (65-115); Osmolality Calculated 287 mOsm/kg (285-295); Potassium 4.1 mmol/L (3.5-5.1); Sodium 135 mmol/L (136-145); Total Bilirubin 0.6 mg/dL (0.15-1.2); Total Protein 7.1 g/dL (6.6-8.7)
[2022-06-03 19:17] LABS: Absolute Neutrophil 7.7 10^3/cmm (1.4-6.5); Absolute Segmented Neutrophil 6.6 10/cmm (1.6-7.1); Eosinophils 0 %; Lymphocytes 32 %; Lymphocytes Absolute 17.1 10^3/cmm (1.2-3.4); Monocytes Absolute 0.8 10^3/cmm (0.1-0.6); Platelet Estimate Normal (Normal); Segmented Neutrophils 26 %; Slide Review Slide Review Perform; Total Cells Counted 100 (0-100)
--- NOTE | 2022-06-03 20:34 | PC.NURSE ---
CHRIS SOUZA ORDERED CARDIAC MONITORING. CARDIAC MONITORING NOT AVAILABLE
--- NOTE | 2022-06-03 21:08 | ED_ITS ---
HPI - Weakness General: Chief complaint: Weakness Stated complaint: not eating and feel diarrhea Time Seen by Provider: 06/03/22 20:18 History of Present Illness: Patient is an 87-year-old female comes to the ED with weakness. Past medical history of chronic lymphocytic leukemia, hyp ertension, hypothyroidism, dementia and A. fib. Patient has had symptoms of a cough, diarrhea, nausea and vomiting for approximately the last 6 days. She has had decreased food and fluid intake and is having multiple episodes of diarrhea a day. She is having some occasional nausea and vomiting as well. Denies any fevers, chest pain, shortness of breath, abdominal pain. Associated symptoms: Reports nausea and vomiting; Denies chest pain, chills, dysuria, fever(s) or headache(s) Review of Systems Const: Reports: change in appetite (Decreased appetite); Denies: fever(s), chills or fatigue Eyes: Denies: change in vision or eye discomfort ENMT: Denies: throat pain, odynophagia, nasal discharge or nasal congestion Card: Denies: chest pain, palpitations, edema, swelling of feet/ankles, dysp mitchel on exertion or orthopnea Resp: Reports: non-productive cough; Denies: dyspnea or productive cough GI: Reports: nausea, vomiting and diarrhea; Denies: abdominal pain, constipation or hematochezia : Denies: flank pain, dysuria or hematuria Musc: Denies: neck pain, back pain or extremity swelling Skin/Breast: Denies: rash or new lesions Neuro: Denies: headache(s), numbness in extremities or weakness in extremities PFS ED PFSH: Medical History Anxiety and depression Atrial fibrillation CKD (chronic kidney disease) CLL (chronic lymphocytic leukemia) Diabetes mellitus GERD (gastroesophageal reflux disease) Hyperlipidemia Hypertension Hypothyroid Surgical History History of cholecystectomy History of colonoscopy unsure of date History of hysterectomy History of ovarian resection Family History Denies family history of Anesthesia complication Bleeding disorder Physical Exam Const: COMMON NORMALS: no acute distress, patient oriented x3 and alert GENERAL APPEARANCE: cooperative and comfortable HENMT: COMMON NORMALS: normocephalic HEAD & SCALP: normocephalic MOUTH: Normal oral and palatal mucosa present THROAT: posterior oropharynx normal and uvula midline Neck/C-Spine: COMMON NORMALS: supple GENERAL: Yes normal visual inspection Resp: COMMON NORMALS: normal respiratory effort, No retractions, No use of accessory muscles and clear to auscultation bilaterally AUSCULTATION: clear to auscultation bilaterally Cardio: COMMON NORMALS: regular rate, regular rhythm, S1 normal heart sound present, S2 normal heart sound present, No gallops present (Cardio), No clicks present (Cardio), No murmurs present (Cardio) and Peripheral pulses 2+ throughout RATE: regular rate RHYTHM: regular rhythm HEART SOUNDS: S1 normal heart sound present and S2 normal heart sound present PERIPHERAL PULSES: Peripheral pulses 2+ throughout GI: COMMON NORMALS: Normal to inspection, nondistended, normoactive bowel sounds present, Soft to palpation, non-tender and no masses PALPATION: Yes Soft to palpation : COMMON NORMALS: Yes no CVA tenderness BLADDER/KIDNEY EXAM: Yes no CVA tenderness Back/Pelvis: COMMON NORMALS: no CVA tenderness Extremity: COMMON NORMALS: normal to inspection Neuro: COMMON NORMALS: patient oriented x3 SENSORIUM/ORIENTATION: Yes alert GAIT: Yes Normal gait present Skin: GENERAL SKIN EXAM: dry skin Course Vital Signs: Vital signs: Vital Signs Temperature 97.8 F 06/03/22 16:47 Pulse Rate 93 06/03/22 21:22 Respiratory Rate 18 06/03/22 21:22 Blood Pressure 108/68 06/03/22 21:22 Pulse Oximetry 98 06/03/22 21:22 Oxygen Delivery Me thod 06/03/22 21:22 MDM - Weakness Medical Decision Making Patient is an 87-year-old female comes to the ED with weakness. Past medical history of chronic lymphocytic leukemia, hypertension, hypothyroidism, dementia and A. fib. Patient has had symptoms of a cough, diarrhea, nausea and vomiting for approximately the last 6 days. She has had decreased food and fluid intake and is having multiple episodes of diarrhea a day. She is having some occasional nausea and vomiting as well. Denies any fevers, chest pain, shortness of breath, abdominal pain. Vitals are stable. Exam of patient is benign. White blood cell count 25.5 but patient has CLL and that appears to be her normal white blood cell level when looking at recent and past labs. CMP was unremarkable. Chest x-ray showed no acute findings. Rapid COVID was positive. Pt outside treatment window for paxlovid. Patient was given IV fluids and Zofran while here in the ED. She was stable for discharge home and diagnosed with COVID-19. She was sent home with a prescription for oral steroid, antibiotic, nausea med and antidiarrheal. Told to follow-up with PCP within the next 2 to 3 days for reevaluation. Strict return to ED precautions given. Patient's and daughter were present and they understood and agreed with plan. Lab Data I reviewed the patient's lab results. : 06/03/22 16:00 06/03/22 16:00 Radiology Impressions Chest X-Ray 06/03/22 18:17 IMPRESSION: No acute findings. Laboratory Results WBC 25.5 10^3/uL (4.0-10.0) H 06/03/22 16:00 RBC 4.34 10^6/uL (4.1-5.3) 06/03/22 16:00 Hgb 13.1 g/dL (11.5-15.3) 06/03/22 16:00 Hct 41.8 % (37.0-47.0) 06/03/22 16:00 MCV 96.3 fl (81-99) 06/03/22 16:00 MCH 30.2 pg (28.0-34.0) 06/03/22 16:00 MCHC 31.3 g/dL (30.0-36.0) 06/03/22 16:00 RDW 14.7 % (12.1-15.1) 06/03/22 16:00 Plt Count 222 10^3/cmm (130-400) 06/03/22 16:00 MPV 9.9 fL (7.4-10.4) 06/03/22 16:00 Lymph % (Auto) Not Reportable 06/03/22 16:00 [place] % (Auto) Not Reportable 06/03/22 16:00 Lymph # (Auto) Not Reportable 06/03/22 16:00 [place] # (Auto) Not Reportable 06/03/22 16:00 Total Counted 100 (0-100) 06/03/22 16:00 Atypical Lymphs % 35.0 % (0-5) H 06/03/22 16:00 Absolute Neutrophils 7.7 10^3/cmm (1.4-6.5) H 06/03/22 16:00 Segmented Neutrophils 26 % 06/03/22 16:00 Abs Segm Neuts (Man) 6.6 10/cmm (1.6-7.1) 06/03/22 16:00 Band Neutrophils 4.0 % 06/03/22 16:00 Abs Band Neuts (Man) 1.0 10^3/cmm (0.0-1.2) 06/03/22 16:00 Absolute Lymphocytes 17.1 10^3/cmm (1.2-3.4) H 06/03/22 16:00 Lymphocytes (Manual) 32 % 06/03/22 16:00 Monocytes (Manual) 3.0 % 06/03/22 16:00 Absolute Monocytes 0.8 10^3/cmm (0.1-0.6) H 06/03/22 16:00 Eosinophils (Manual) 0 % 06/03/22 16:00 Absolute Eosinophils 0.0 10^3/cmm (0.0-0.7) 06/03/22 16:00 Basophils (Manual) 0.0 % 06/03/22 16:00 Absolute Basophils 0.0 10^3/cmm (0.0-0.2) 06/03/22 16:00 Platelet Estimate Normal (Normal) 06/03/22 16:00 Sodium 135 mmol/L (136-145) L 06/03/22 16:00 Potassium 4.1 mmol/L (3.5-5.1) 06/03/22 16:00 Chloride 96 mmol/L (98-107) L 06/03/22 16:00 Carbon Dioxide 27 mmol/L (22-29) 06/03/22 16:00 Anion Gap 16.1 (5-19) 06/03/22 16:00 BUN 31 mg/dL (8-23) H 06/03/22 16:00 Creatinine 1.4 mg/dL (0.5-0.9) H 06/03/22 16:00 GFR Calculation Not Reportable 06/03/22 16:00 Glucose 107 mg/dL (65-115) 06/03/22 16:00 Calculated Osmolality 287 mOsm/kg (285-295) 06/03/22 16:00 Calcium 9.7 mg/dL (8.5-10.5) 06/03/22 16:00 Total Bilirubin 0.6 mg/dL (0.15-1.2) 06/03/22 16:00 AST 30 U/L (0-32) 06/03/22 16:00 ALT 21 U/L (0-33) 06/03/22 16:00 Alkaline Phosphatase 79 U/L (35-105) 06/03/22 16:00 Total Protein 7.1 g/dL (6.6-8.7) 06/03/22 16:00 Albumin 4.0 g/dL (3.5-5.2) 06/03/22 16:00 Globulin 3.1 g/dL (1.3-4.6) 06/03/22 16:00 SARS-CoV-2 Ag (Rapid) Positive (Negative) H 06/03/22 20:46 Discharge Plan Discharge Patient Disposition: Home Clinical Impression: COVID-19 Condition: Stable Prescriptions: New azithromycin 250 mg tablet 250 mg PO DAILY 4 Days Qty: 4 0RF Rx Instructions: start on day 2 of therapy prednisone 20 mg tablet 20 mg PO BID 3 Days Qty: 6 0RF ondansetron HCl 4 mg tablet 4 mg PO Q8H PRN (Reason: nausea and vomiting) Qty: 15 0RF Imodium A-D 2 mg capsule 2 mg PO QID PRN (Reason: loose stool) Qty: 20 0RF No Action metformin 500 mg tablet 500 mg PO BID donepezil 10 mg tablet 10 mg PO DAILY sennosides [Senokot] 8.6 mg tablet 8.6 mg PO BID fluticasone propionate [Flonase Allergy Relief] 50 mcg/actuation spray,suspension 1 spray intranasal DAILY Rx Instructions: administer into each nostril ferrous sulfate 325 mg (65 mg iron) tablet 325 mg PO DAILY alprazolam 0.25 mg tablet 0.25 mg PO TID Qty: 90 5RF Multiple Vitamins Tablet 1 tab PO DAILY atorvastatin 20 mg tablet 20 mg PO DAILY citalopram 40 mg tablet 40 mg PO DAILY Tylenol Extra Strength 500 mg Tablet 500 mg PO PRN propranolol 10 mg tablet 10 mg PO BID levothyroxine 50 mcg tablet 50 mcg PO DAILY metoprolol tartrate 50 mg tablet See Rx Instructions .ROUTE .COMPLEX Rx Instructions: pt states she takes this medication 50mg bid-per office this medication was dced on 02/02/2020 digoxin 125 mcg (0.125 mg) tablet 125 mcg PO DAILY Prilosec OTC 20 mg Tablet,Delayed Release (Dr/Ec) 20 mg PO BID Rx Instructions: this medication was on the pts medication list from office Xarelto 20 mg tablet 20 mg PO DAILY Discharge Orders: Discharge ED (Routine); Ordered 06/03/22 Ordered By: Bhavesh Cox Referrals: Doyle Evangelista MD [Primary Care Provider] - Discharge Diet: Regular Discharge Activity: Increase activity as tolerated Patient Instructions: COVID-19 (Coronavirus Disease 2019) (ED) Activity Restrictions/Additional Instructions: Follow-up with medical provider as directed in the next 2 to 3 days for reevaluation. Make sure patient drinks plenty of fluids and is staying hydrated. Make sure to mix in some fluids with electrolytes such as Gatorade's or Powerade's. Take medications as prescribed. Return to the ER or your medical provider if condition worsens. Please read and understand discharge instructions. Thank you for choosing [facility] for your healthcare needs today. Please realize this is an emergency room and that we are providing you with a medical screening exam and this may not be complete and all inclusive of all the testing and or work up that you may need to determine your ailment or severity of your illness. It is very important that you follow up as instructed or that you return to the Emergency Department should you have concerns or if your condition changes or worsens in any way. Coding Level of Care Code ED Medicine Tech for Deann Garza Exam Comprehensive
[2022-06-03 21:22] VITALS: BP 108/68; PULSE 93; RESP 18; O2SAT 98
[2022-06-03] MEDS: sodium chloride 0.9% 500 ML 999 ML IV (21:27)
[2022-06-03] MEDS: ondansetron 2 mg/ML SDV 2 mL 4 MG IVP (21:28)
[2022-06-03 21:30] LABS: SARS Covid-2 Antigen Positive (Negative)
[2022-06-03] MEDS: dicyclomine 20 mg Tablet PO (22:58)
[2022-06-03] MEDS: azithromycin 250 mg Tablet 500 MG PO (22:58)
[2022-06-03] MEDS: predniSONE 20 mg Tablet 40 MG PO (22:59)
== END 2022-06-03 23:11 | disposition home or self-care (01) ==
PROVIDERS: Family Medicine; Student in an Organized Health Care Education/Training Program; Emergency Provider Physician Assistant; PCP Family Medicine
DX: U07.1 COVID-19 (principal); Z79.84 Long term (current) use of oral hypoglycemic drugs; Z85.6 Personal history of leukemia; E11.9 Type 2 diabetes mellitus without complications; E78.5 Hyperlipidemia, unspecified; I10 Essential (primary) hypertension
CPT/HCPCS: 36415; 71045; 80053; 85007; 85025; 87426; 96361; 96374; 99284; J2405; J7040; J7512; Q0144